=== PATIENT | male | born 1995 ===

== ENCOUNTER 2018-05-17 08:57 | Emergency (ER) | payer MEDICAID ==
[2018-05-17] MEDS ORDERED: Midazolam 2 MG/2 ML VIAL IM ONE (09:27)
[2018-05-17] MEDS ORDERED: Tuberculin 5 Units/0.1 ml Inj ID ONE (09:30)
[2018-05-17] MEDS ORDERED: Midazolam 2 MG/2 ML VIAL ONE (09:44)
--- NOTE | 2018-05-17 10:50 | ED PDOC ---
HPI: General Adult Time Seen by Provider: 05/17/18 09:19 Chief Complaint (Nursing): Medical Clearance Chief Complaint (Provider): need lab work performed History Per: Patient Recently: Treated By A Physician Additional Complaint(s): 22yo autistic male nonverbal sent to ED for lab draw, unable to draw in outpatient setting due to agitation and combative. Per caretakers no recent issues, illness or trauma. Caretakers requesting restraints before sedation for lab draw. Discussed w [facility] A[facility] PMD Latricia Sinclair, confirms need for stat blood draw as unable to get for >year. Past Medical History Reviewed: Historical Data, Nursing Documentation, Vital Signs Vital Signs: Last Vital Signs Temp Pulse 86 05/17/18 11:34 Resp BP Pulse Ox - Medical History Other PMH: autism - Surgical History Surgical History: Tonsillectomy - Family History Family History: States: Unknown Family Hx - Living Arrangements Living Arrangements: With Family - Social History Current smoker - smoking cessation education provided: No - Allergies Allergies/Adverse Reactions: Allergies Allergy/AdvReac Type Severity Reaction Status Date / Time strawberry Allergy RASH Verified 05/17/18 09:13 Review of Systems Review Of Systems: ROS cannot be obtained secondary to pt's inabilty to answer questions. Physical Exam - Reviewed Nursing Documentation Reviewed: Yes Vital Signs Reviewed: Yes - Physical Exam Appears: Positive for: Non-toxic (autistic nonverbal communicates poorly) Head Exam: Positive for: ATRAUMATIC, NORMAL INSPECTION, NORMOCEPHALIC Skin: Positive for: Normal Color, Warm, DRY Eye Exam: Positive for: EOMI, Normal appearance, PERRL Neck: Positive for: Normal, Painless ROM Respiratory: Negative for: Respiratory Distress Gastrointestinal/Abdominal: Positive for: Soft Extremity: Positive for: Normal ROM. Negative for: Deformity, Swelling Neurologic/Psych: Positive for: Alert, Other (+strength intact). Negative for: Motor/Sensory Deficits - Laboratory Results Result Diagrams: 05/17/18 10:37 05/17/18 10:37 Medical Decision Making Medical Decision Making: versed 3mg given IM for anxiolysis, remained awake. Restraints briefly applied with security present with special care and attention to extremities and neck for venipuncture, remained combative with poor insight but able to be restrained to obtain medically necessary bloodwork. IV briefly inserted and labs withdrawn UA requested also but caretakers did not want catheterized and will attempt clean catch at home, urine cup given Labs to be reviewed via PMD, many send out tests require outpatient followup PPD also placed and will require read in 48hrs C Dottie aware Monitored approx 90min after IM versed, remains awake, baseline, caretakers wished to take home. Instructions provided. At baseline mental status on DC Disposition - Clinical Impression Clinical Impression: Autism disorder - Patient ED Disposition Is Patient to be Admitted: No Counseled Patient/Family Regarding: Studies Performed, Diagnosis, Need For Followup, Rx Given - Disposition Referrals: Anthony Sinclair, TAYA, STRAIGHT EDGER [Advanced Practice Nurse] - Disposition Time: 11:35 Condition: STABLE Additional Instructions: Followup with [facility] for results of bloodwork. Get urine sample at home and bring to your PMD. Keep in refrigerator if unable to bring immediately. Clean penis before collecting sample. Do not contaminate sample with water or touching inside cup. HAVE PPD CHECKED ON MONDAY MORNING AT [place]. Instructions: Autism Spectrum Disorder, General (DC) Forms: [email or web address] (Yoruba)
[2018-05-17 11:01] LABS: BASO # 0.1 K/uL (0.0-0.2); BASO % 0.6 % (0.0-2.0); EOS # 0.2 K/uL (0.0-0.7); EOS % 0.9 % (0.0-4.0); HEMOGLOBIN 17.7 g/dL (12.0-18.0); LYMPH # 4.7 K/uL (1.0-4.3); LYMPH % 27.3 % (20.0-40.0); MEAN CELL VOLUME 82.6 fl (80.0-94.0); MEAN CORPUSCULAR HEMOGLOBIN 27.7 pg (27.0-31.0); MEAN CORPUSCULAR HGB CONC 33.5 g/dL (33.0-37.0); MEAN PLATELET VOLUME 9.1 fl (7.2-11.7); MONO # 1.9 K/uL (0.0-0.8); MONO % 11.2 % (0.0-10.0); NEUT # 10.4 K/uL (1.8-7.0); NRBC % 0.2 % (0.0-0.0); RBC 6.37 Mil/uL (4.40-5.90); RED CELL DISTRIBUTION WIDTH 12.9 % (11.5-14.5); WHITE BLOOD COUNT 17.3 K/uL (4.8-10.8)
[2018-05-17 11:03] LABS: ALB/GLOB RATIO 1.3 (1.0-2.1); ALBUMIN 5.3 g/dL (3.5-5.0); ALT/SGPT 59 U/L (21-72); AST/SGOT 35 U/L (17-59); BLOOD UREA NITROGEN 15 mg/dl (9-20); CALCIUM 10.2 mg/dL (8.4-10.2); GFR AFRICAN-AMERICAN > 60; GFR NON-AFRICAN AMERICAN > 60; HDL CHOLESTEROL 34 MG/DL (30-70)
[2018-05-17 11:13] LABS: LDL CHOLESTEROL 89 mg/dL (0-129)
[2018-05-17 11:35] VITALS: PULSE 86
[2018-05-17 16:27] LABS: HEPATITIS B SURFACE AG Negative (NEGATIVE)
[2018-05-17 17:02] LABS: FOLATE > 20.0 ng/mL
== END 2018-05-17 11:35 | disposition home or self-care (01) ==
LOC: H.ER 08:57
DX: R79.9 Abnormal finding of blood chemistry, unspecified (principal); F84.0 Autistic disorder
CPT/HCPCS: 80053; 80061; 82306; 82607; 82746; 83036; 83655; 85025; 86317; 86480; 86706; 86735; 86762; 86765; 86774; 86787; 87340; 87798; 96372; 99282; J2250